=== PATIENT | male | born 1940 | race American Indian/Alaskan Native ===

== ENCOUNTER 2016-08-28 09:31 | Outpatient (CLI) | payer MEDICARE, OTHER ==
--- NOTE | 2016-08-29 09:01 | Nuclear Medicine Report ---
NUCLEAR MEDICINE WHOLE-BODY BONE SCAN: 08/28/16 11:00:00 CLINICAL: Prostate cancer. History of old right humerus fracture. COMPARISON: 01/19/16 TECHNIQUE: 25.0millicuries technetium 99m MDP was injected intravenously and whole body scans were obtained at 3 hours. FINDINGS: The distribution of radionuclide in the skeleton is normal except for stable mild uptake to the right of midline at L2 and L4 and focal uptake at the site of the old right humerus fracture. Diffuse intense thyroid uptake is new and is consistent free pertechnetate uptake. IMPRESSION: Stable bone scan. The uptake at L2 and L3 may be related to degenerative facet joint disease.
== END 2016-08-28 09:32 | disposition home or self-care (01) ==
LOC: NM 09:31
PROVIDERS: ATTEND Internal Medicine Hematology & Oncology
DX: C61 Malignant neoplasm of prostate (principal); S42.301D Unspecified fracture of shaft of humerus, right arm, subsequent encounter for fracture with routine healing; X58.XXXD Exposure to other specified factors, subsequent encounter; I10 Essential (primary) hypertension; Z87.891 Personal history of nicotine dependence
CPT/HCPCS: 78306; A9503

== ENCOUNTER 2016-11-25 07:17 | Outpatient (CLI) | payer MEDICARE, OTHER ==
[2016-11-25 08:16] LABS: Blood Urea Nitrogen 20 mg/dL (9-20)
[2016-11-25] MEDS ORDERED: NACL ONE (09:53)
--- NOTE | 2016-11-25 11:17 | Cat Scan Report ---
CT SCAN OF THE ABDOMEN AND PELVIS WITH CONTRAST: HISTORY: Prostate cancer. TECHNIQUE: Helical CT in 1.25mm intervals following IV contrast. Sagittal and coronal reconstructions. FINDINGS: There is mild cardiomegaly. No pericardial effusion. The visualized lung bases are clear. The liver is normal in size and is without focal defect. No gallstones or biliary dilatation are noted. The spleen and pancreas demonstrate a normal size and attenuation with no evidence of abnormal mass. The kidneys are normal in size and position with no evidence of hydronephrosis or mass. The adrenal glands are normal. There is no intestinal obstruction or ascites. The appendix is not confidently identified. The abdominal aorta is normal. No abnormalities are identified within the retroperitoneum or mesentery. There is no evidence of peritoneal air or fluid. There is no evidence of any abnormal masses or fluid collections within the pelvis. No adenopathy is identified. The bladder is normal. Previous right inguinal hernia changes are suspected, correlate history. A moderate lumbar spondylosis is noted. No fracture or suspicious bony lesion is appreciated. IMPRESSION: No evidence for metastatic disease to the abdomen or pelvis. Mild cardiomegaly.
--- NOTE | 2016-11-25 13:00 | Cat Scan Report ---
CT CHEST WITH CONTRAST HISTORY: Prostate cancer. TECHNIQUE: Helical CT with sagittal and coronal reformatted images. FINDINGS: There is mild cardiomegaly. No pericardial effusion. The aorta is mildly ectatic. No focal aneurysm or dissection. The thyroid gland, tracheobronchial tree and esophagus are unremarkable. No mediastinal adenopathy is detected. Minimal centrilobular emphysematous changes are suspected in both upper lobes. The lungs are clear otherwise. No mass, infiltrate, pleural effusion or pneumothorax. The bony structures are intact. No suspicious bony lesion is appreciated. Small bone island in the right posterior ninth rib is noted. IMPRESSION: No evidence for metastatic disease to the chest. Mild emphysematous changes in the upper lobes. Mild cardiomegaly.
--- NOTE | 2016-11-27 16:49 | Nuclear Medicine Report ---
Nuclear medicine bone scan. History: Prostate cancer, restaging. Findings: Comparison is made to the previous study on September 27, 2016. A subtle area of increased activity in the right humeral shaft is again noted, unchanged. Minimal increased activity is seen in the lumbar spine, also unchanged. This is most likely degenerative. Activity within the mandible most likely represents dental disease. No new abnormalities are seen within the skeletal system. Impression: Stable findings most likely due to benign etiology with no suspicious new findings.
== END 2016-11-25 07:18 | disposition home or self-care (01) ==
LOC: NM 07:17
PROVIDERS: ATTEND Internal Medicine Hematology & Oncology
DX: C61 Malignant neoplasm of prostate (principal); J02.9 Acute pharyngitis, unspecified; I51.7 Cardiomegaly; I77.819 Aortic ectasia, unspecified site; M47.896 Other spondylosis, lumbar region; Z87.891 Personal history of nicotine dependence
CPT/HCPCS: 36415; 71260; 74177; 78306; 82565; 84520; A9503; Q9967

== ENCOUNTER 2017-05-27 08:16 | Outpatient (CLI) | payer MEDICARE, OTHER ==
[2017-05-27 09:15] LABS: Blood Urea Nitrogen 27 mg/dL (9-20)
--- NOTE | 2017-05-27 14:26 | Nuclear Medicine Report ---
BONE SCAN: HISTORY: Malignant neoplasm of prostate. COMPARISON: Multiple previous bone scans dating back to 01/19/16. FINDINGS: There is normal renal and soft tissue activity. Contamination in the peritoneum is noted. Subtle focal uptake in the proximal right humeral shaft is unchanged over multiple previous exams and is of uncertain etiology. Subtle uptake in the lumbar spine is less pronounced on today's exam and may be related to degenerative change. No definitive bone lesions are identified in this area on CT abdomen pelvis performed the same day. Advanced lumbar spondylosis is present. There is diffuse uptake in the anterior mandible which is unchanged over multiple previous exams and most likely represents periodontal disease. IMPRESSION: Stable findings since 01/19/16 as outlined above.
--- NOTE | 2017-05-27 15:58 | Cat Scan Report ---
FINAL REPORT EXAM: CT ABDOMEN PELVIS W CON HISTORY: MALIGNANT NEOPLASM OF PROSTATE TECHNIQUE: Standard enhanced CT of the abdomen and pelvis. Coronal and sagittal reconstruction was also performed. Delayed imaging through the kidneys and bladder was obtained. Contrast: Intravenous contrast given PRIORS: CT a/P 11/25/2016 FINDINGS: Within the abdomen, the liver, spleen, pancreas, gallbladder, adrenal glands, and right kidney are unremarkable. A low-density rounded cyst in the midpole left kidney is smaller than seen previously now measuring 2.1 x 1.9 cm (previously 3.1 x 3.2 cm, by my measurements). No evidence for retroperitoneal or pelvic lymphadenopathy is seen. Moderate stool is present throughout the colon. Diverticuli in the descending colon are again noted without active diverticulitis. The bowel loops have normal caliber. No soft tissue mass, fluid collection, inflammatory change, or free air is seen within the abdomen or pelvis. The appendix is normal. Within the pelvis, the bladder is unremarkable. Both ureteral jets are visible in the bladder. The prostate is stable in appearance and size. Seminal vesicles are also normal and stable. There is a mild inferior mass impression on the urinary bladder from the prostate, unchanged. No evidence for mass or lymphadenopathy is seen in the pelvis. Images through the upper abdomen include the lung bases which will be further evaluated with a dedicated CT chest accompanying today's study. Bony structures are stable. No evidence for sclerotic bone metastases is seen. Well-defined lytic foci with well-defined sclerotic borders in the left iliac wing are stable. Significant hypertrophic facet joint degenerative changes at L5-S1 are noted bilaterally. Degenerative disc narrowing throughout the lumbar spine is present. IMPRESSION: 1. no acute intra-abdominal process noted. No evidence for progression of disease. 2. Reduction in size of a cyst within the midpole left kidney 3. Diverticulosis
--- NOTE | 2017-05-27 16:11 | Cat Scan Report ---
FINAL REPORT EXAM: CT CHEST W CON HISTORY: MALIGNANT NEOPLASM OF PROSTATE TECHNIQUE: Standard enhanced CT of the chest at 2.5 mm axial increments. Coronal and sagittal reconstruction was also obtained. Contrast: Intravenous contrast given PRIORS: CT chest 11/25/2016 FINDINGS: Linear fibrotic changes in the lateral aspect of the anterior left lower lobe is present along the fissure (axial image 89). There is small the ovoid linear density in the lateral right upper lobe (axial image 44) which is unchanged. Otherwise, the lung parenchyma are expanded and clear with no evidence for new parenchymal nodules, infiltrates, vascular congestion, pleural effusion, or pneumothorax. Emphysematous changes in the upper lobes bilaterally is again noted, stable. There is no evidence for mediastinal, hilar, or axillary adenopathy. The esophagus is collapsed. The trachea is midline. The heart size is mildly enlarged but stable. The aorta is ectatic throughout the chest, unchanged. Images through the lung bases include upper abdomen which show no abnormality of the visualized abdominal viscera. Bony structures show a stable sclerotic focus in the posterior right 9th rib, likely incidental bone island. No new focal sclerotic or lytic lesions are identified. No evidence for bony fracture is seen. IMPRESSION: 1. no acute abnormality identified in the chest. Stable exam. No evidence for progression of disease. 2. Underlying emphysematous changes again noted 3. Mild cardiac enlargement and ectasia of the aorta are stable.
== END 2017-05-27 08:17 | disposition home or self-care (01) ==
LOC: NM 08:16
PROVIDERS: ATTEND Internal Medicine Hematology & Oncology
DX: C61 Malignant neoplasm of prostate (principal); M48.061 Spinal stenosis, lumbar region without neurogenic claudication; I51.7 Cardiomegaly; N28.1 Cyst of kidney, acquired; K57.30 Diverticulosis of large intestine without perforation or abscess without bleeding; I77.819 Aortic ectasia, unspecified site; J02.9 Acute pharyngitis, unspecified; M47.897 Other spondylosis, lumbosacral region
CPT/HCPCS: 36415; 71260; 74177; 78306; 82565; 84520; Q9967